=== PATIENT | female | born 1960 ===

== ENCOUNTER 2024-02-23 08:32 | Day surgery (SDC) | payer OTHER, SELFPAY ==
[2024-02-23 08:27] VITALS: BMI 29.9
[2024-02-23 08:36] VITALS: BP 162/92; BMI 29.9
[2024-02-23] MEDS: TYLENOL 1000 MG PO (08:49)
[2024-02-23 12:02] VITALS: BP 128/65
[2024-02-23 12:15] VITALS: BP 147/75
[2024-02-23 12:30] VITALS: BP 140/66
[2024-02-23 12:45] VITALS: BP 124/59
== END 2024-02-23 13:01 | disposition home or self-care (01) ==
LOC: SDS 08:32
PROVIDERS: ATTENDING PHYSICIAN Surgery
DX: Z12.11 Encounter for screening for malignant neoplasm of colon (principal); D12.0 Benign neoplasm of cecum; D12.3 Benign neoplasm of transverse colon; K62.1 Rectal polyp; K62.4 Stenosis of anus and rectum; Z86.0100 Personal history of colon polyps, unspecified; Z98.890 Other specified postprocedural states
CPT/HCPCS: 45380; 45381; 88305